=== PATIENT | male | born 1985 | race African-American/Black ===

== ENCOUNTER 2022-04-05 01:56 | Emergency (ER) | payer SELFPAY ==
[~2022-04-05] VITALS: Ht 190.5 cm; Wt 79.5 kg
[2022-04-05 02:02] VITALS: BP 109/87; PULSE 82; TEMP 98.1
[2022-04-05 02:14] LABS: BASO # 0.1 K/mm3 (0.0-0.2); EOS # 0.4 K/mm3 (0.0-0.7); EOS % 7.2 % (0.0-4.0); GRAN # 2.6 K/mm3 (1.4-6.5); GRAN % 43.8 % (42.2-75.2); HEMOGLOBIN 14.6 g/dl (13.5-18.0); LYMPH # 2.2 K/mm3 (1.2-3.4); LYMPH % 36.2 % (20.0-51.0); MEAN CELL VOLUME 92 fl (80.0-100.0); MEAN CORPUSCULAR HEMOGLOBIN 32 pg (27-31); MEAN CORPUSCULAR HGB CONC 35 g/dl (33.0-37.0); MEAN PLATELET VOLUME 9.6 fl (7.4-10.4); MONO # 0.7 K/mm3 (0.1-0.6); MONO % 11.6 % (1.7-9.3); PLATELET COUNT 298 K/mm3 (130-400); RED BLOOD COUNT 4.55 M/mm3 (4.20-5.60); REDCELL DISTRIBUTION WIDTH-CV 12.3 % (11.5-14.5)
[2022-04-05 02:22] LABS: PROTHROMBIN TIME 11.9 SECONDS (9.7-12.8)
[2022-04-05 02:36] LABS: ALBUMIN 4.6 gm/dL (3.5-5.0); BILIRUBIN,TOTAL 0.2 mg/dL (0.2-1.2); CALCIUM 9.9 mg/dL (8.4-10.2); CREATININE, serum 0.94 mg/dL (0.72-1.25)
[2022-04-06] MEDS ORDERED: FLEXERIL 1010 MG/TAB PO (13:57)
== END 2022-04-05 04:49 | disposition left against medical advice (07) ==
LOC: COL.ER 01:56
PROVIDERS: Emergency Medicine
DX: M54.2 Cervicalgia (principal); R51.9 Headache, unspecified; M54.6 Pain in thoracic spine; V59.69XA Unspecified occupant of pick-up truck or van injured in collision with other motor vehicles in traffic accident, initial encounter; Y92.410 Unspecified street and highway as the place of occurrence of the external cause
CPT/HCPCS: J3010; Q9967